=== PATIENT | male | born 1960 | race Caucasian/White ===

== ENCOUNTER 2017-10-02 08:00 | Outpatient (CLI) | payer OTHER ==
[2017-10-03] MEDS ORDERED: SOD CHLORIDE 0.9% 1,000 ML IV (06:00)
[2017-10-03] MEDS ORDERED: CEFAZOLIN 2 GM/50 ML (PMX) 50 ML IVPB (06:00)
[2017-10-03] MEDS ORDERED: MIDAZOLAM 1 MG/ML 2 ML INJ (13:04)
[2017-10-03] MEDS ORDERED: FENTAnyl 50 MCG/ML VIAL (13:04)
[2017-10-03] MEDS ORDERED: SUGAMMADEX SODIUM 200 MG/2 ML VIAL IV (13:06)
[2017-10-03] MEDS ORDERED: METOCLOPRAMIDE 10 MG INJ (13:10)
[2017-10-03] MEDS ORDERED: POLYMYXIN/BACITRACIN 1L IRRIG (13:28)
[2017-10-03] MEDS ORDERED: BUPIVACAINE 0.25% (MPF) 30 ML INJ (13:28)
== END 2017-10-03 | disposition home or self-care (01) ==
LOC: SDS 10-03 10:33 → LAB 08:00
DX: Z01.818 Encounter for other preprocedural examination (principal); K43.9 Ventral hernia without obstruction or gangrene
CPT/HCPCS: 71045; 93005